=== PATIENT | male | born 1990 | race Hispanic/Latino ===

== ENCOUNTER 2016-10-09 23:04 | Emergency (ER) | payer SELFPAY ==
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
[2016-10-10] MEDS ORDERED: TYLENOL #3 PO ONE (02:09)
[2016-10-10] MEDS ORDERED: FLEXERIL PO ONE (02:09)
[2016-10-10 03:02] VITALS: BP 129/98
== END 2016-10-10 03:04 | disposition home or self-care (01) ==
LOC: ED 23:04
DX: M54.12 Radiculopathy, cervical region (principal); M79.1 Myalgia; J45.909 Unspecified asthma, uncomplicated; F17.200 Nicotine dependence, unspecified, uncomplicated
CPT/HCPCS: 99282

== ENCOUNTER 2016-11-27 19:55 | Emergency (ER) | payer SELFPAY ==
[2016-11-27 20:22] LABS: Basophils % (Auto) 0.5 % (0.0-1.8); Eosinophils % (Auto) 0.2 % (0.0-4.3); Hematocrit 45.6 % (35.5-45.6); Hemoglobin 15.1 gm/dl (11.8-15.2); Mean Corpuscular HGB Conc 33 % (32-34); Mean Corpuscular Hemoglobin 30 pg (28-32); Mean Corpuscular Volume 89 fl (84-94); Platelet Count 251 K/mm3 (140-440); Red Blood Count 5.13 M/mm3 (3.65-5.03); White Blood Count 11.1 K/mm3 (4.5-11.0)
[2016-11-27 20:36] LABS: Bilirubin,Urine NEG (Negative); Blood,Urine NEG (Negative); Ketones,Urine TR mg/dL (Negative); Leukocyte Esterase,Urine NEG (Negative); Mucus,Urine 2+ /HPF; Nitrite,Urine NEG (Negative); Urobilinogen,Urine < 2.0 mg/dL (<2.0)
[2016-11-27 20:38] LABS: Alanine Aminotransferase 42 units/L (7-56); Albumin 4.1 g/dL (3.9-5); Albumin/Globulin Ratio 1.4 %; Alkaline Phosphatase 111 units/L (35-129); Anion Gap 18 mmol/L; BUN/Creatinine Ratio 14.28; Blood Urea Nitrogen 10 mg/dL (9-20); Calcium 8.5 mg/dL (8.4-10.2); Carbon Dioxide 25 mmol/L (22-30); Chloride 97.5 mmol/L (98-107); Glucose 96 mg/dL (75-100); Lipase 26 units/L (13-60); Potassium 3.6 mmol/L (3.6-5.0); Sodium 137 mmol/L (137-145)
[2016-11-28] MEDS ORDERED: NACL 0.9% 1000 ML 1,000 ML IV ONE (06:45)
[2016-11-28] MEDS ORDERED: ZOFRAN IV ONE (06:45)
--- NOTE | 2016-11-28 06:54 | Emergency Department Report ---
HPI - General Chief Complaint: Abdominal Pain Time Seen by Provider: 11/28/16 06:44 - HPI HPI: This is a 26-year-old male who presents to the emergency department, dropped off by a friend, with complaint of generalized body aches, upper abdominal pain, right shoulder pain, nausea and vomiting, bright red blood seen in the stool and some subjective fever has been going on for the past 2 days. He did not take anything for symptoms prior to presentation. He says the abdominal pain is currently 10 out of 10 in intensity and is a stabbing and burning sensation. He denies any known aggravating or alleviating factors. He denies any past medical history. He does not have a primary care doctor. No recent travel or sick contacts at home. ED Past Medical Hx - Past Medical History Previous Medical History?: Yes Hx Asthma: Yes Additional medical history: hypoglycemia - Surgical History Past Surgical History?: Yes Hx Appendectomy: Yes - Social History Smoking Status: Current Some Day Smoker Substance Use Type: None - Medications Home Medications: Home Medications Medication Instructions Recorded Confirmed Last Taken Type Promethazine [Phenergan] 25 mg PO Q6H PRN #8 tablet 10/20/13 Unknown Rx Acetaminophen/Codeine [Tylenol 1 tab PO Q6H #12 tab 10/10/16 Unknown Rx /Codeine # 3 tab] Cyclobenzaprine [Flexeril 10 MG 10 mg PO QHS #20 tablet 10/10/16 Unknown Rx TAB] Ibuprofen [Motrin] 800 mg PO Q8HR PRN #24 tablet 10/10/16 Unknown Rx HYDROcodone/APAP 5-325 [[place] 1 each PO Q6HR PRN #10 tablet 11/28/16 Unknown Rx 5-325 mg TAB] Ondansetron [Zofran Odt] 4 mg PO Q8H PRN #10 tab.rapdis 11/28/16 Unknown Rx ED Review of Systems ROS: Stated complaint: VOMITING BLOOD/ABD/BODY PAIN/FEVER/R SHOULDER PAIN Other details as noted in HPI Comment: All other systems reviewed and negative Constitutional: fever (subjective). denies: weakness Eyes: denies: eye pain, eye discharge, vision change ENT: denies: ear pain, throat pain Respiratory: denies: cough, shortness of breath, wheezing Cardiovascular: denies: chest pain, palpitations Gastrointestinal: abdominal pain, nausea, vomiting, diarrhea, other (bright red blood per rectum) Genitourinary: denies: urgency, dysuria Musculoskeletal: back pain, arthralgia, myalgia Skin: denies: rash, lesions Neurological: denies: headache, weakness, paresthesias Physical Exam - Physical Exam Vital Signs: Vital Signs 11/27/16 11/28/16 11/28/16 20:02 05:25 06:12 Temperature 99.2 F 98.6 F Pulse Rate 95 H 89 Respiratory 20 Rate Blood Pressure 118/79 122/86 O2 Sat by Pulse 95 100 93 Oximetry Physical Exam: GENERAL: The patient is well-developed well-nourished. HEENT: Normocephalic. Atraumatic. Extraocular motions are intact. Patient has moist mucous membranes. Pupils equal reactive to light bilaterally. Oropharynx is clear. NECK: Supple. Trachea is midline. CHEST/LUNGS: Clear to auscultation. There is no respiratory distress noted. HEART/CARDIOVASCULAR: Regular. There is no tachycardia. There is no gallop rub or murmur. ABDOMEN: Abdomen is soft. Mild upper abdominal tenderness to palpation. No guarding rebound tenderness.. Patient has normal bowel sounds. There is no abdominal distention. SKIN: There is no rash. There is no edema. There is no diaphoresis. NEURO: The patient is awake, alert, and oriented. The patient is cooperative. The patient has no focal neurologic deficits. The patient has normal speech. MUSCULOSKELETAL: There is no tenderness or deformity. There is no limitation range of motion. There is no evidence of acute injury. ED Course Vital Signs 11/27/16 11/28/16 11/28/16 20:02 05:25 06:12 Temperature 99.2 F 98.6 F Pulse Rate 95 H 89 Respiratory 20 Rate Blood Pressure 118/79 122/86 O2 Sat by Pulse 95 100 93 Oximetry ED Medical Decision Making - Lab Data Result diagrams: 11/27/16 20:10 11/27/16 20:10 - Radiology Data Radiology results: report reviewed, image reviewed interpreted by me: X-ray of the right shoulder does not show any fracture, dislocation or any acute process. X-ray of the abdomen shows nonspecific nonobstructive bowel gas. Right upper quadrant abdominal ultrasound shows sludge within the gallbladder but no signs of cholecystitis. - Medical Decision Making 26-year-old male presents with a few days of some generalized body aches, abdominal discomfort, nausea, vomiting and subjective fever. Patient's labs are mostly unremarkable. There is a leukocytosis but it is basically within the normal range. The patient does not appear to be very ill-appearing. Heart and lungs sounds normal auscultation. There is some mild upper abdominal tenderness to palpation but it is not a toxic a rigid abdomen. Labs are unremarkable except for a very mild leukocytosis. Normal belly labs including bilirubin, lipase and LFTs. An abdominal x-ray and a right shoulder x-ray were done that did not show any fracture, dislocation, signs of obstruction or any acute processes. With the patient's complaint of upper abdominal pain and some shoulder pain, a biliary etiology was considered. Right upper quadrant ultrasound was done that shows sludge within the gallbladder but no signs of cholecystitis. Patient was given some Zofran for nausea and pain medication and upon reevaluation he is feeling improved. Vital signs stable throughout his ED course including being afebrile. He was given referrals for primary care and gastroenterology. He will return to the ER with any worsening of symptoms or any acute distress. - Differential Diagnosis cholelithiasis, cholecystitis, pancreatitis, viral syndrome, colitis Critical Care Time: No Critical care attestation.: If time is entered above; I have spent that time in minutes in the direct care of this critically ill patient, excluding procedure time. ED Disposition Clinical Impression: Biliary colic, Body aches Right shoulder pain Qualifiers: Chronicity: acute Qualified Code(s): M25.511 - Pain in right shoulder Nausea & vomiting Qualifiers: Vomiting type: unspecified Vomiting Intractability: non-intractable Qualified Code(s): R11.2 - Nausea with vomiting, unspecified Disposition: DISCHARGED TO HOME OR SELFCARE Is pt being admited?: No Condition: Stable Instructions: Biliary Colic (ED), Acute Nausea and Vomiting (ED), Abdominal Pain (ED), Arthralgia (ED) Additional Instructions: Please follow-up with a primary care doctor in the next few days. I have given you a referral for a local direct care staffer, , and oriented follow- up regarding your bladder sludge in pain. Increase your oral rehydration. Return to the emergency department with any worsening of your symptoms or any acute distress. You've been prescribed a medication that is sedating. Therefore this medication cannot be mixed with alcohol, or taken prior to driving, working, or being responsible for children. Prescriptions: HYDROcodone/APAP 5-325 [[place] 5-325 mg TAB] 1 each PO Q6HR PRN #10 tablet PRN Reason: Pain Ondansetron [Zofran Odt] 4 mg PO Q8H PRN #10 tab.rapdis PRN Reason: Nausea Referrals: PRIMARY CARE, [Primary Care Provider] - 3-5 Days MILLIE MAYORGA MD [Staff Physician] - 3-5 Days NIDHI HIGHTOWER MD [Staff Physician] - 3-5 Days [facility] [Outside] - 3-5 Days Time of Disposition: 10:26
--- NOTE | 2016-11-28 07:31 | XRay Report ---
RIGHT SHOULDER RADIOGRAPHS INDICATION: Right shoulder pain for 3 days. COMPARISON: None similar. FINDINGS: Frontal and Y views of the right shoulder, 3 projections demonstrate normal humeral head contour, well positioned against the glenoid. Normal acromioclavicular joint. Preserved scapular contour. Approximately 9 mm humeral neck bone island. Normal visualized soft tissues, right ribs and lung. CONCLUSION: No acute right shoulder radiographic abnormality, as described. Thank you for the opportunity to participate in this patient's care.
[2016-11-28] MEDS ORDERED: MORPHINE IV ONE ×2 (07:57→10:07)
[2016-11-28] MEDS ORDERED: MORPHINE ONE (08:12)
--- NOTE | 2016-11-28 08:50 | XRay Report ---
Flat and upright abdomen: History: Abdominal pain. Findings: No free intraperitoneal air. No bowel distention or wall thickening. No radiopaque calculus or abnormal calcification. Impression: Essentially negative abdomen.
[2016-11-28 09:39] VITALS: BP 119/71
--- NOTE | 2016-11-28 10:14 | Ultrasound Report ---
Sonogram right upper quadrant: History: Right upper quadrant pain. Findings: Normal aorta. Normal liver. No intrahepatic or extrahepatic duct dilatation. Common bile duct 2.8 mm. Gallbladder wall thickness 3 mm. Sludge within the gallbladder. No definite calculi. No pericholecystic fluid. Right kidney 10.8 x 5.3 x 4 cm. Cortical thickness 1.6 cm. Pancreas not well visualized. Impression: Sludge within the gallbladder.
== END 2016-11-28 10:42 | disposition home or self-care (01) ==
LOC: ED 19:55
DX: K80.50 Calculus of bile duct without cholangitis or cholecystitis without obstruction (principal); M79.1 Myalgia; M25.511 Pain in right shoulder; R11.2 Nausea with vomiting, unspecified; J45.909 Unspecified asthma, uncomplicated; F17.200 Nicotine dependence, unspecified, uncomplicated; Z90.49 Acquired absence of other specified parts of digestive tract; Z88.0 Allergy status to penicillin; Z88.2 Allergy status to sulfonamides
CPT/HCPCS: 36415; 73030; 74020; 76705; 80053; 81001; 83690; 85025; 96361; 96365; 96375; 96376; 99284; J2270; J2405; J7030

== ENCOUNTER 2017-03-15 22:22 | Emergency (ER) | payer SELFPAY ==
[2017-03-15 23:24] LABS: Basophils % (Auto) 0.8 % (0.0-1.8); Eosinophils % (Auto) 0.6 % (0.0-4.3); Hemoglobin 14.7 gm/dl (11.8-15.2); Mean Corpuscular HGB Conc 33 % (32-34); Mean Corpuscular Hemoglobin 30 pg (28-32); Mean Corpuscular Volume 89 fl (84-94); Platelet Count 315 K/mm3 (140-440); Red Blood Count 4.96 M/mm3 (3.65-5.03); Red Cell Distribution Width 12.9 % (13.2-15.2); White Blood Count 9.7 K/mm3 (4.5-11.0)
[2017-03-15 23:45] LABS: Anion Gap 21 mmol/L; Blood Urea Nitrogen 8 mg/dL (9-20); Calcium 9.3 mg/dL (8.4-10.2); Carbon Dioxide 21 mmol/L (22-30); Chloride 103.5 mmol/L (98-107); Glucose 93 mg/dL (75-100); Sodium 142 mmol/L (137-145)
--- NOTE | 2017-03-16 02:54 | Emergency Department Report ---
ED Chest Pain HPI - General Chief Complaint: Chest Pain Stated Complaint: CHEST PAIN Time Seen by Provider: 03/16/17 02:44 Source: patient Mode of arrival: Ambulatory Limitations: No Limitations - History of Present Illness Initial Comments: 26 years old male with no significant past medical history by EMS with a chief complaint CHEST pain left-sided sharp in nature and comes and goes. Denied any shortness of breath he said he has been shaking a lot recently. No fever no nausea no vomiting or diarrhea. His mother at his bedside she told me that his father at early age for congestive heart failure. MD Complaint: chest pain -: Sudden Pain Location: left chest Pain Radiation: none Severity: moderate Severity scale (0 -10): 6 Quality: sharp re: denies: nausea, vomting Other Symptoms: denies: cough, fever, syncope - Related Data Previous Rx's Medication Instructions Recorded Last Taken Type Promethazine [Phenergan] 25 mg PO Q6H PRN #8 tablet 10/20/13 Unknown Rx Acetaminophen/Codeine [Tylenol 1 tab PO Q6H #12 tab 10/10/16 Unknown Rx /Codeine # 3 tab] Cyclobenzaprine [Flexeril 10 MG 10 mg PO QHS #20 tablet 10/10/16 Unknown Rx TAB] Ibuprofen [Motrin] 800 mg PO Q8HR PRN #24 tablet 10/10/16 Unknown Rx HYDROcodone/APAP 5-325 [[place] 1 each PO Q6HR PRN #10 tablet 11/28/16 Unknown Rx 5-325 mg TAB] Ondansetron [Zofran Odt] 4 mg PO Q8H PRN #10 tab.rapdis 11/28/16 Unknown Rx Naproxen [Naprosyn] 500 mg PO BID #14 tablet 03/16/17 Unknown Rx Allergies Allergy/AdvReac Type Severity Reaction Status Date / Time Penicillins Allergy Rash Verified 07/19/14 01:37 Sulfa (Sulfonamide Allergy Rash Verified 07/19/14 01:37 Antibiotics) Heart Score - HEART Score History: Slightly suspicious EKG: Normal Age: < 45 Risk factors: 1-2 risk factors Troponin: < normal limit HEART Score: 1 - Critical Actions Critical Actions: 0-3 pts:0.9-1.7%risk of adverse cardiac event.Candidate for discharge ED Review of Systems ROS: Stated complaint: CHEST PAIN Other details as noted in HPI Comment: All other systems reviewed and negative Constitutional: denies: chills, fever ENT: denies: throat pain, dental pain Respiratory: denies: cough, shortness of breath Cardiovascular: chest pain. denies: palpitations, dyspnea on exertion, orthopnea Gastrointestinal: denies: abdominal pain, nausea, vomiting Genitourinary: denies: dysuria Neurological: denies: headache, weakness, numbness, paresthesias ED Past Medical Hx - Past Medical History Previous Medical History?: Yes Hx Psychiatric Treatment: Yes (depression) Hx Asthma: Yes Additional medical history: hypoglycemia, insomnia - Surgical History Past Surgical History?: Yes Hx Appendectomy: Yes - Social History Smoking Status: Current Every Day Smoker Substance Use Type: None - Medications Home Medications: Home Medications Medication Instructions Recorded Confirmed Last Taken Type Promethazine [Phenergan] 25 mg PO Q6H PRN #8 tablet 10/20/13 Unknown Rx Acetaminophen/Codeine [Tylenol 1 tab PO Q6H #12 tab 10/10/16 Unknown Rx /Codeine # 3 tab] Cyclobenzaprine [Flexeril 10 MG 10 mg PO QHS #20 tablet 10/10/16 Unknown Rx TAB] Ibuprofen [Motrin] 800 mg PO Q8HR PRN #24 tablet 10/10/16 Unknown Rx HYDROcodone/APAP 5-325 [[place] 1 each PO Q6HR PRN #10 tablet 11/28/16 Unknown Rx 5-325 mg TAB] Ondansetron [Zofran Odt] 4 mg PO Q8H PRN #10 tab.rapdis 11/28/16 Unknown Rx Naproxen [Naprosyn] 500 mg PO BID #14 tablet 03/16/17 Unknown Rx ED Physical Exam - General Limitations: No Limitations General appearance: alert, in no apparent distress, anxious - Head Head exam: Present: normocephalic - Eye Eye exam: Present: normal appearance - ENT ENT exam: Present: normal exam - Neck Neck exam: Present: normal inspection - Respiratory Respiratory exam: Present: normal lung sounds bilaterally. Absent: wheezes, rales, rhonchi - Cardiovascular Cardiovascular Exam: Present: regular rate, normal rhythm, normal heart sounds - GI/Abdominal GI/Abdominal exam: Present: soft. Absent: distended, tenderness, guarding, rebound, rigid - Back Exam Back exam: Present: normal inspection. Absent: CVA tenderness (R), CVA tenderness (L) - Neurological Exam Neurological exam: Present: alert, oriented X3 - Psychiatric Psychiatric exam: Present: anxious - Skin Skin exam: Present: warm, normal color ED Course Vital Signs 03/15/17 03/16/17 22:40 03:08 Temperature 98.5 F Pulse Rate 82 63 Respiratory 30 H 17 Rate Blood Pressure 136/86 Blood Pressure 121/76 [Left] O2 Sat by Pulse 99 99 Oximetry - Reevaluation(s) Reevaluation #1: 03/16/17 05:24 Patient is sleeping comfortably in the room while walking to inform him about his results in no acute distress. Patient is stated that he is feeling much better his pain is gone advised him to follow up with his primary care physician in the next 2-3 days. ED Medical Decision Making - Lab Data Result diagrams: 03/15/17 23:04 03/15/17 23:04 Critical care attestation.: If time is entered above; I have spent that time in minutes in the direct care of this critically ill patient, excluding procedure time. ED Disposition Clinical Impression: Chest pain, Costochondritis, acute Disposition: DC-01 TO HOME OR SELFCARE Is pt being admited?: No Condition: Stable Instructions: Chest Pain (ED), Costochondritis (ED) Referrals: PRIMARY CARE, [Primary Care Provider] - 3-5 Days
[2017-03-16 03:11] VITALS: BP 121/76
[2017-03-16 04:50] LABS: Urine Drugs of Abuse Note Disclamer
[2017-03-16 05:10] LABS: Bilirubin,Urine NEG (Negative); Blood,Urine NEG (Negative); Ketones,Urine NEG (Negative); Leukocyte Esterase,Urine NEG (Negative); Mucus,Urine 3+ /HPF; Nitrite,Urine NEG (Negative); RBC,Urine < 1.0 /HPF (0.0-6.0); Urobilinogen,Urine < 2.0 mg/dL (<2.0)
--- NOTE | 2017-03-16 08:37 | XRay Report ---
CHEST ONE VIEW INDICATION: Chest pain. COMPARISON: 06/12/2012. FINDINGS: Portable, single, frontal chest radiograph demonstrates normal cardiomediastinal silhouette. Clear lungs. Unremarkable bones. Extrinsic EKG leads. CONCLUSION: No acute disease in the chest. Thank you for the opportunity to participate in this patient's care.
== END 2017-03-16 05:37 | disposition home or self-care (01) ==
LOC: ED 22:22
DX: M94.0 Chondrocostal junction syndrome [Tietze] (principal); J45.909 Unspecified asthma, uncomplicated; F17.210 Nicotine dependence, cigarettes, uncomplicated; Z88.0 Allergy status to penicillin; Z88.2 Allergy status to sulfonamides
CPT/HCPCS: 36415; 71010; 80048; 80307; 81001; 83690; 84484; 85025; 85379; 93005; 93010; 99284

== ENCOUNTER 2017-06-19 20:00 | Emergency (ER) | payer OTHER ==
[2017-06-19 22:24] VITALS: BP 121/77
[2017-06-19 23:27] LABS: Hematocrit 41.4 % (35.5-45.6); Hemoglobin 13.8 gm/dl (11.8-15.2); Mean Corpuscular HGB Conc 33 % (32-34); Mean Corpuscular Hemoglobin 30 pg (28-32); Mean Corpuscular Volume 89 fl (84-94); Platelet Count 317 K/mm3 (140-440); Red Blood Count 4.67 M/mm3 (3.65-5.03); Red Cell Distribution Width 12.9 % (13.2-15.2); White Blood Count 19.4 K/mm3 (4.5-11.0)
[2017-06-19 23:48] LABS: Anion Gap 17 mmol/L; BUN/Creatinine Ratio 15; Blood Urea Nitrogen 9 mg/dL (9-20); Carbon Dioxide 24 mmol/L (22-30); Glucose 93 mg/dL (75-100); Sodium 135 mmol/L (137-145)
--- NOTE | 2017-06-20 03:04 | Emergency Department Report ---
Minor Respiratory - HPI Chief Complaint: Sore Throat Stated Complaint: SORE THROUT,DIARRHEA Time Seen by Provider: 06/20/17 00:10 Duration: 2 weeks Pain Location: Throat Severity: moderate Minor Respiratory: Yes Rhinorrhea, Yes Sore Throat, Yes Able to Tolerate Fluids , Yes Cough, No Ear Pain, No Sick Contacts, No Hemoptysis, No Chest Pain, No Shortness of Breath, No Fever Other History: This is a 26 y.o. male presenting with sore throat and diarrhea x 2 weeks. States he wakes up with discharge in both eyes every morning. Admits to dry cough, diarrhea, headache, and sore throat. Denies chest pain, SOB, and muscle weakness. ED Review of Systems ROS: Stated complaint: SORE THROUT,DIARRHEA Other details as noted in HPI Constitutional: no symptoms reported, see HPI. denies: chills, diaphoresis, fever, malaise, weakness Eyes: as per HPI, eye discharge. denies: eye pain, vision change ENT: as per HPI, throat pain, congestion. denies: ear pain, dental pain, hearing loss, epistaxis Respiratory: no symptoms reported, see HPI, cough. denies: orthopnea, shortness of breath, SOB with exertion, SOB at rest, stridor, wheezing Cardiovascular: as per HPI. denies: chest pain, palpitations, dyspnea on exertion, orthopnea, edema, syncope, paroxysmal nocturnal dyspnea Gastrointestinal: as per HPI. denies: abdominal pain, nausea, vomiting, diarrhea, constipation, hematemesis, melena, hematochezia Neurological: as per HPI. denies: headache, weakness, numbness, paresthesias, confusion, abnormal gait, vertigo Psychiatric: as per HPI. denies: anxiety, depression, auditory hallucinations, visual hallucinations, homicidal thoughts, suicidal thoughts ED Past Medical Hx - Past Medical History Previous Medical History?: Yes Hx Psychiatric Treatment: Yes (depression) Hx Asthma: Yes Additional medical history: hypoglycemia, insomnia - Surgical History Hx Appendectomy: Yes - Social History Smoking Status: Current Some Day Smoker - Medications Home Medications: Home Medications Medication Instructions Recorded Confirmed Last Taken Type Promethazine [Phenergan] 25 mg PO Q6H PRN #8 tablet 10/20/13 Unknown Rx Acetaminophen/Codeine [Tylenol 1 tab PO Q6H #12 tab 10/10/16 Unknown Rx /Codeine # 3 tab] Cyclobenzaprine [Flexeril 10 MG 10 mg PO QHS #20 tablet 10/10/16 Unknown Rx TAB] Ibuprofen [Motrin] 800 mg PO Q8HR PRN #24 tablet 10/10/16 Unknown Rx HYDROcodone/APAP 5-325 [[place] 1 each PO Q6HR PRN #10 tablet 11/28/16 Unknown Rx 5-325 mg TAB] Ondansetron [Zofran Odt] 4 mg PO Q8H PRN #10 tab.rapdis 11/28/16 Unknown Rx Naproxen [Naprosyn] 500 mg PO BID #14 tablet 03/16/17 Unknown Rx Ciprofloxacin 0.3% (Nf) 2.5 ml OP BID 7 Days #1 bottle 06/20/17 Unknown Rx [Ciprofloxacin OPTH] Levofloxacin [Levaquin TAB] 500 mg PO QDAY 7 Days #7 tablet 06/20/17 Unknown Rx Prednisone [predniSONE 5 mg (6-Day 5 mg PO .TAPER #1 tab.ds.pk 06/20/17 Unknown Rx Pack, 21 Tabs)] Minor Respiratory Exam - Exam General: Vital signs noted. No distress. Alert and acting appropriately. HEENT: Yes Pharyngeal Erythema, Yes Moist Mucous Membranes, Yes Rhinorrhea, Yes Conjuctival Injection (bilaterally, clear discharge), No Pharyngeal Exudates, No Frontal Tenderness, No Maxillary Tenderness Ear: Neither TM Bulge, Neither TM Erythema, Neither EAC Pain, Neither EAC Discharge Neck: Yes Supple, No Adenopathy Lungs: Yes Good Air Exchange, Yes Cough, No Wheezes, No Ronchi, No Stridor, No Labored Respirations, No Retractions, No Use of Accessory Muscles, No Other Abnormal Lung Sounds Heart: Yes Regular, No Murmur Abdomen: Yes Normal Bowel Sounds, No Tenderness, No Peritoneal Signs Skin: No Rash, No Edema Neurologic: Alert and oriented, no deficits. Musculoskeletal: Unremarkable. ED Course Vital Signs 06/19/17 06/19/17 22:20 23:04 Temperature 98.1 F 98.1 F Pulse Rate 92 H 96 H Respiratory 18 18 Rate Blood Pressure 121/77 121/77 O2 Sat by Pulse 97 97 Oximetry ED Medical Decision Making - Lab Data Result diagrams: 06/19/17 23:16 06/19/17 23:16 Critical care attestation.: If time is entered above; I have spent that time in minutes in the direct care of this critically ill patient, excluding procedure time. ED Disposition Clinical Impression: URI (upper respiratory infection) Qualifiers: URI type: acute laryngopharyngitis Qualified Code(s): J06.0 - Acute laryngopharyngitis Conjunctivitis Qualifiers: Conjunctivitis type: acute Acute conjunctivitis type: bacterial Laterality: bilateral Qualified Code(s): H10.33 - Unspecified acute conjunctivitis, bilateral Disposition: TO HOME OR SELFCARE Is pt being admited?: No Does the pt Need Aspirin: No Condition: Stable Instructions: Pharyngitis (ED), Upper Respiratory Infection (ED) Additional Instructions: Increase fluid intake. Return to ER if you experience shortness of breath, fever, difficulty breathing. Prescriptions: Ciprofloxacin 0.3% (Nf) [Ciprofloxacin OPTH] 2.5 ml OP BID 7 Days #1 bottle Levofloxacin [Levaquin TAB] 500 mg PO QDAY 7 Days #7 tablet Prednisone [predniSONE 5 mg (6-Day Pack, 21 Tabs)] 5 mg PO .TAPER #1 tab.ds.pk Referrals: PARISA PATEL MD [Primary Care Provider] - 3-5 Days [facility] [Outside] - 3-5 Days [facility] [Outside] - 3-5 Days Forms: Work/School Release Form(ED) Time of Disposition: 03:13 Print Language: FRENCH
[2017-06-20] MEDS ORDERED: MOTRIN ONE (03:27)
[2017-06-20] MEDS ORDERED: DELTASONE ONE (03:27)
[2017-06-20] MEDS ORDERED: DELTASONE PO ONE (03:37)
[2017-06-20] MEDS ORDERED: MOTRIN PO ONE (03:38)
== END 2017-06-20 04:01 | disposition home or self-care (01) ==
LOC: ED 20:00
DX: J06.0 Acute laryngopharyngitis (principal); H10.33 Unspecified acute conjunctivitis, bilateral; F32.9 Major depressive disorder, single episode, unspecified; J45.909 Unspecified asthma, uncomplicated; F17.200 Nicotine dependence, unspecified, uncomplicated; Z88.0 Allergy status to penicillin; Z88.2 Allergy status to sulfonamides
CPT/HCPCS: 36415; 80048; 85027; 87116; 87430; 99283; J7512

== ENCOUNTER 2017-10-02 19:59 | Emergency (ER) | payer SELFPAY ==
[2017-10-02] MEDS ORDERED: ASPIRIN PO ONE (20:22)
[2017-10-02 20:34] LABS: Basophils # (Auto) 0.1 K/mm3 (0.0-0.1); Basophils % (Auto) 0.6 % (0.0-1.8); Eosinophils # (Auto) 0.1 K/mm3 (0.0-0.4); Eosinophils % (Auto) 0.6 % (0.0-4.3); Hematocrit 46.8 % (35.5-45.6); Hemoglobin 15.7 gm/dl (11.8-15.2); Lymphocytes # (Auto) 2.5 K/mm3 (1.2-5.4); Lymphocytes % (Auto) 25.2 % (13.4-35.0); Mean Corpuscular HGB Conc 34 % (32-34); Mean Corpuscular Hemoglobin 30 pg (28-32); Mean Corpuscular Volume 88 fl (84-94); Monocytes # (Auto) 0.5 K/mm3 (0.0-0.8); Monocytes % (Auto) 5.3 % (0.0-7.3); Platelet Count 289 K/mm3 (140-440); Red Blood Count 5.29 M/mm3 (3.65-5.03)
[2017-10-02 20:52] LABS: BUN/Creatinine Ratio 23; Blood Urea Nitrogen 14 mg/dL (9-20); Calcium 8.9 mg/dL (8.4-10.2); Hemolysis Index 4
[2017-10-03] MEDS ORDERED: MOTRIN PO ONE (00:14)
--- NOTE | 2017-10-03 00:15 | Emergency Department Report ---
ED Chest Pain HPI - General Chief Complaint: Chest Pain Stated Complaint: CHEST PAIN Time Seen by Provider: 10/02/17 23:57 Source: patient, RN notes reviewed, old records reviewed Mode of arrival: Ambulatory Limitations: No Limitations - History of Present Illness Initial Comments: This is a 27-year-old male. He is previously unknown to this provider. He has chronic sleep disturbances and takes trazodone. The patient presents to the ER with a complaint of central chest pain. The pain is central and radiates to the right chest wall and left chest wall over the past 48 hours. Briefly, it radiated to the right upper extremity within the past 24 hours and this was relieved with NSAIDs. No recent aspirin use, no recent cocaine use, no leg pain, no leg swelling, no DVT or pulmonary embolus risk factors. Patient denies nausea, vomiting, diaphoresis. The pain does not have exacerbating or relieving factors, he denies cough, fever , mucus production MD Complaint: chest pain -: Gradual, days(s) Onset: during rest Pain Location: left chest, right chest Severity: mild Severity scale (0 -10): 5 Quality: tightness Consistency: intermittent Improves With: medication-other Worsens With: nothing re: denies: nausea, vomting, diaphoresis, dyspnea, sense of impending doom Other Symptoms: denies: cough, fever, syncope, rash, acid taste in mouth, leg swelling, palpitations, burping Treatments Prior to Arrival: other Aspirin use within the Past 7 Days: (0) No - Related Data On Oral Contraceptives: No Previous Rx's Medication Instructions Recorded Last Taken Type Promethazine [Phenergan] 25 mg PO Q6H PRN #8 tablet 10/20/13 Unknown Rx Acetaminophen/Codeine [Tylenol 1 tab PO Q6H #12 tab 10/10/16 Unknown Rx /Codeine # 3 tab] Cyclobenzaprine [Flexeril 10 MG 10 mg PO QHS #20 tablet 10/10/16 Unknown Rx TAB] Ibuprofen [Motrin] 800 mg PO Q8HR PRN #24 tablet 10/10/16 Unknown Rx HYDROcodone/APAP 5-325 [[place] 1 each PO Q6HR PRN #10 tablet 11/28/16 Unknown Rx 5-325 mg TAB] Ondansetron [Zofran Odt] 4 mg PO Q8H PRN #10 tab.rapdis 11/28/16 Unknown Rx Naproxen [Naprosyn] 500 mg PO BID #14 tablet 03/16/17 Unknown Rx Ciprofloxacin 0.3% (Nf) 2.5 ml OP BID 7 Days #1 bottle 06/20/17 Unknown Rx [Ciprofloxacin OPTH] Levofloxacin [Levaquin TAB] 500 mg PO QDAY 7 Days #7 tablet 06/20/17 Unknown Rx Prednisone [predniSONE 5 mg (6-Day 5 mg PO .TAPER #1 tab.ds.pk 06/20/17 Unknown Rx Pack, 21 Tabs)] Aspirin [Aspirin BABY CHEW TAB] 81 mg PO QDAY #30 tab.chew 10/03/17 Unknown Rx Allergies Allergy/AdvReac Type Severity Reaction Status Date / Time Penicillins Allergy Rash Verified 07/19/14 01:37 Sulfa (Sulfonamide Allergy Rash Verified 07/19/14 01:37 Antibiotics) Heart Score - HEART Score History: Slightly suspicious EKG: Normal Age: < 45 Risk factors: 1-2 risk factors Troponin: < normal limit HEART Score: 1 - Critical Actions Critical Actions: 0-3 pts:0.9-1.7%risk of adverse cardiac event.Candidate for discharge ED Review of Systems ROS: Stated complaint: CHEST PAIN Other details as noted in HPI Comment: All other systems reviewed and negative ED Past Medical Hx - Past Medical History Hx Psychiatric Treatment: Yes (depression) Hx Asthma: Yes Additional medical history: hypoglycemia, insomnia - Surgical History Hx Appendectomy: Yes - Social History Smoking Status: Current Every Day Smoker Substance Use Type: None - Medications Home Medications: Home Medications Medication Instructions Recorded Confirmed Last Taken Type Promethazine [Phenergan] 25 mg PO Q6H PRN #8 tablet 10/20/13 Unknown Rx Acetaminophen/Codeine [Tylenol 1 tab PO Q6H #12 tab 10/10/16 Unknown Rx /Codeine # 3 tab] Cyclobenzaprine [Flexeril 10 MG 10 mg PO QHS #20 tablet 10/10/16 Unknown Rx TAB] Ibuprofen [Motrin] 800 mg PO Q8HR PRN #24 tablet 10/10/16 Unknown Rx HYDROcodone/APAP 5-325 [[place] 1 each PO Q6HR PRN #10 tablet 11/28/16 Unknown Rx 5-325 mg TAB] Ondansetron [Zofran Odt] 4 mg PO Q8H PRN #10 tab.rapdis 11/28/16 Unknown Rx Naproxen [Naprosyn] 500 mg PO BID #14 tablet 03/16/17 Unknown Rx Ciprofloxacin 0.3% (Nf) 2.5 ml OP BID 7 Days #1 bottle 06/20/17 Unknown Rx [Ciprofloxacin OPTH] Levofloxacin [Levaquin TAB] 500 mg PO QDAY 7 Days #7 tablet 06/20/17 Unknown Rx Prednisone [predniSONE 5 mg (6-Day 5 mg PO .TAPER #1 tab.ds.pk 06/20/17 Unknown Rx Pack, 21 Tabs)] Aspirin [Aspirin BABY CHEW TAB] 81 mg PO QDAY #30 tab.chew 10/03/17 Unknown Rx ED Physical Exam - General Limitations: No Limitations General appearance: alert, in no apparent distress - Head Head exam: Present: atraumatic, normocephalic - Eye Eye exam: Present: normal appearance, EOMI. Absent: nystagmus - ENT ENT exam: Present: normal exam, normal orophraynx, mucous membranes moist, normal external ear exam - Neck Neck exam: Present: normal inspection, full ROM. Absent: tenderness, meningismus - Respiratory Respiratory exam: Present: normal lung sounds bilaterally. Absent: respiratory distress, wheezes, rales, rhonchi, stridor - Cardiovascular Cardiovascular Exam: Present: regular rate, normal rhythm. Absent: systolic murmur, diastolic murmur, rubs, gallop - GI/Abdominal GI/Abdominal exam: Present: soft, normal bowel sounds. Absent: distended, tenderness, guarding, rebound, rigid, pulsatile mass - Rectal Rectal exam: Present: deferred - Extremities Exam Extremities exam: Present: normal inspection, full ROM, normal capillary refill. Absent: pedal edema, joint swelling, calf tenderness - Back Exam Back exam: Present: normal inspection, full ROM. Absent: tenderness, CVA tenderness (R), paraspinal tenderness, vertebral tenderness - Neurological Exam Neurological exam: Present: alert, oriented X3, CN II-XII intact, normal gait, other (Extraocular movements intact. Tongue midline. No facial droop. Facial sensation intact to light touch in the V1, V2, V3 distribution bilaterally. 5 and 5 strength in 4 extremities.. Sensation is intact to light touch in 4 extremities.). Absent: motor sensory deficit - Psychiatric Psychiatric exam: Present: normal affect, normal mood - Skin Skin exam: Present: warm, dry, intact, normal color. Absent: rash ED Course Vital Signs 10/02/17 10/02/17 10/02/17 20:07 20:18 23:31 Temperature 98.0 F 98 F 98.3 F Pulse Rate 86 86 74 Respiratory 16 18 20 Rate Blood Pressure 164/108 164/88 Blood Pressure 149/102 [Left] O2 Sat by Pulse 99 99 97 Oximetry 10/02/17 10/03/17 23:38 01:13 Temperature Pulse Rate Respiratory 20 20 Rate Blood Pressure Blood Pressure [Left] O2 Sat by Pulse 97 Oximetry JAME score - Jame Score Age > 65: (0) No Aspirin use within the Past 7 Days: (0) No 3 or more CAD Risk Factors: (0) No 2 or more Angina events in past 24 hrs: (0) No Known CAD with more than 50% Stenosis: (0) No Elevated Cardiac Markers: (0) No ST Deviation Greater than 0.5mm: (0) No JAME Score: 0 ED Medical Decision Making - Lab Data Result diagrams: 10/02/17 20:24 10/02/17 20:24 Vital Signs 10/02/17 10/02/17 10/02/17 20:07 20:18 23:31 Temperature 98.0 F 98 F 98.3 F Pulse Rate 86 86 74 Respiratory 16 18 20 Rate Blood Pressure 164/108 164/88 Blood Pressure 149/102 [Left] O2 Sat by Pulse 99 99 97 Oximetry 10/02/17 10/03/17 23:38 01:13 Temperature Pulse Rate Respiratory 20 20 Rate Blood Pressure Blood Pressure [Left] O2 Sat by Pulse 97 Oximetry Lab Results 10/02/17 10/02/17 10/02/17 Range/Units 20:24 20:24 23:37 WBC 10.0 (4.5-11.0) K/mm3 RBC 5.29 H (3.65-5.03) M/mm3 Hgb 15.7 H (11.8-15.2) gm/dl Hct 46.8 H (35.5-45.6) % MCV 88 (84-94) fl MCH 30 (28-32) pg MCHC 34 (32-34) % RDW 13.0 L (13.2-15.2) % Plt Count 289 (140-440) K/mm3 Lymph % (Auto) 25.2 (13.4-35.0) % [place] % (Auto) 5.3 (0.0-7.3) % Eos % (Auto) 0.6 (0.0-4.3) % Baso % (Auto) 0.6 (0.0-1.8) % Lymph # 2.5 (1.2-5.4) K/mm3 Fleming # 0.5 (0.0-0.8) K/mm3 Eos # 0.1 (0.0-0.4) K/mm3 Baso # 0.1 (0.0-0.1) K/mm3 Seg Neutrophils % 68.3 (40.0-70.0) % Seg Neutrophils # 6.8 (1.8-7.7) K/mm3 Sodium 140 (137-145) mmol/L Potassium 3.5 L (3.6-5.0) mmol/L Chloride 100.9 (98-107) mmol/L Carbon Dioxide 26 (22-30) mmol/L Anion Gap 17 mmol/L BUN 14 (9-20) mg/dL Creatinine 0.6 L (0.8-1.5) mg/dL Estimated GFR > 60 ml/min BUN/Creatinine Ratio 23 % Glucose 81 (75-100) mg/dL Calcium 8.9 (8.4-10.2) mg/dL Troponin T < 0.010 < 0.010 (0.00-0.029) ng/mL - EKG Data -: EKG Interpreted by La - EKG Data When compared to previous EKG there are: no significant change Interpretation: normal EKG 10/03/17 01:22 Sinus, 82 bpm, normal intervals, normal axis, not morphologically consistent with ST elevation myocardial infarction, unchanged from prior EKG March 2017. - Radiology Data Radiology results: report reviewed, image reviewed X-ray of the chest, as per radiology, small left lower lobe infiltrate - Medical Decision Making Differential diagnosis, including but not limited to: GERD, gastritis, pericarditis, myocarditis, hiatal hernia Assessment and plan: 27-year-old male with atypical chest pain, low risk by heart score, low risk by JAME score, EKG unchanged from prior, troponin negative 2, no pulmonary embolus or DVT risk factors, low risk by well's criteria, perc negative While the patient's x-ray has been interpreted as showing a small left lower lobe infiltrate, the patient has no focal pulmonary findings and his history and physical are not consistent with pneumonia. He has full range of motion to the bilateral upper and lower extremities including sensation intact to light touch and appropriate strength. Clinically doubt pneumonia, may be a component of cervical radiculopathy. The patient is suitable to follow up with outpatient primary care doctor or computer networker for incidental elevated blood pressure and low risk chest pain. Incidentally, the patient did request a refill on trazodone to help out with sleep, and I instructed him that he will need to follow up with a primary care doctor or prescribing psychiatrist for this. Critical care attestation.: If time is entered above; I have spent that time in minutes in the direct care of this critically ill patient, excluding procedure time. ED Disposition Clinical Impression: Chest pain Disposition: DC-01 TO HOME OR SELFCARE Is pt being admited?: No Does the pt Need Aspirin: No Condition: Stable Instructions: Chest Pain (ED) Additional Instructions: Rest, and avoid heavy lifting. Take aspirin as directed. Take Tylenol alternating with ibuprofen [id number] as needed for pain. Follow up with either her primary care doctor or any of the listed cardiology groups within the next week for you Chest pain. Return to the ER right away with hip pain, worsened pain, migration of pain, fevers, chills, lethargy, irritability, projectile vomiting, change in mental status, confusion, inability to tolerate liquid feeds. Referrals: PARISA PATEL MD [Primary Care Provider] - 3-5 Days [facility] [Provider Group] - 3-5 Days [facility] [Provider Group] - 3-5 Days
--- NOTE | 2017-10-03 00:36 | XRay Report ---
FINAL REPORT PROCEDURE: XR CHEST ROUTINE 2V TECHNIQUE: PA and lateral chest radiographs were obtained. CPT 81892 HISTORY: cp COMPARISON: No prior studies are available for comparison. FINDINGS: Heart: Normal. Mediastinum/Vessels: Normal. Lungs/Pleural space: Mild infiltrate left lower lung. No infiltrate, effusion or pneumothorax. Bony thorax: No acute osseous abnormality. Other: IMPRESSION: Mild infiltrate left lower lung.
[2017-10-03 02:11] VITALS: BP 127/91
== END 2017-10-03 02:31 | disposition home or self-care (01) ==
LOC: ED 19:59
DX: R07.89 Other chest pain (principal); F17.200 Nicotine dependence, unspecified, uncomplicated; F32.9 Major depressive disorder, single episode, unspecified; Z90.49 Acquired absence of other specified parts of digestive tract; J45.909 Unspecified asthma, uncomplicated; G47.00 Insomnia, unspecified
CPT/HCPCS: 36415; 71046; 80048; 84484; 85025; 93005; 93010; 99284

== ENCOUNTER 2018-01-28 19:43 | Emergency (ER) | payer SELFPAY ==
[2018-01-28 19:57] VITALS: BP 149/100
[2018-01-28] MEDS ORDERED: MOTRIN PO ONE (23:09)
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
== END 2018-01-29 01:38 | disposition home or self-care (01) ==
LOC: ED 19:43
DX: K02.9 Dental caries, unspecified (principal); K05.10 Chronic gingivitis, plaque induced; M79.1 Myalgia; R42 Dizziness and giddiness; F32.9 Major depressive disorder, single episode, unspecified; J45.909 Unspecified asthma, uncomplicated; F17.200 Nicotine dependence, unspecified, uncomplicated; E16.2 Hypoglycemia, unspecified; G47.00 Insomnia, unspecified; Z90.89 Acquired absence of other organs; Z88.0 Allergy status to penicillin; Z88.2 Allergy status to sulfonamides
CPT/HCPCS: 99282

== ENCOUNTER 2019-08-08 16:26 | Emergency (ER) | payer SELFPAY ==
[2019-08-08 17:24] VITALS: BP 140/85
[2019-08-08] MEDS ORDERED: ACETAMINOPHEN 325 MG TAB PO PRN (17:28)
--- NOTE | 2019-08-08 17:28 | Event Note ---
ED Screening Note ED Screening Note: 28-year-old gentleman presenting with total body pain, headache, generalized malaise and fatigue, no neck pain, no neck stiffness. Also endorses intermittent left-sided elbow pain, intermittent right-sided wrist pain there is no facial droop. Tongue is midline. Extraocular movements are intact bilaterally. Walking with a steady gait. Speaking in full sentences. Normal appropriate thought content. 5 out of 5 strength in 4 extremities. Sensation is intact to light touch in 4 extremities. S1, S2, regular rate and rhythm. Breath sounds clear to auscultation bilaterally. Walking with a steady gait. Moving 4 extremities without difficulty. No redness, pus or streaking. Appropriate screening laboratory studies ordered. Suitable for minor care/Fast-Trak. This initial assessment/diagnostic orders/clinical plan/treatment(s) is/are subject to change based on patients health status, clinical progression and re- assessment by fellow clinical providers in the ED. Further treatment and workup at subsequent clinical providers discretion. Patient/guardian urged not to elope from the ED as their condition may be serious if not clinically assessed and managed. Initial orders include:
[2019-08-08 18:33] LABS: Hematocrit 41.6 % (35.5-45.6); Hemoglobin 14.1 gm/dl (11.8-15.2); Mean Corpuscular HGB Conc 34 % (32-34); Mean Corpuscular Volume 90 fl (84-94); Red Blood Count 4.62 M/mm3 (3.65-5.03); Red Cell Distribution Width 12.9 % (13.2-15.2)
[2019-08-08 18:47] LABS: INR 1.01 (0.87-1.13)
[2019-08-08 18:55] LABS: Alanine Aminotransferase 37 units/L (7-56); Albumin 4.3 g/dL (3.9-5); BUN/Creatinine Ratio 14; Blood Urea Nitrogen 10 mg/dL (9-20); Calcium 8.6 mg/dL (8.4-10.2); Hemolysis Index 37
--- NOTE | 2019-08-08 19:06 | Cat Scan Report ---
CT head/brain wo con INDICATION / CLINICAL INFORMATION: 28 years Male; headache. TECHNIQUE: Routine CT head without contrast. All CT scans at this location are performed using CT dos e reduction for ALARA by means of automated exposure control. COMPARISON: None. FINDINGS: BRAIN / INTRACRANIAL CONTENTS: The brain demonstrate appropriate attenuation. The jugular system is w ithin normal limits in size and configuration. There is no CT ends of acute intracranial hemorrhage o r significant mass effect. The subtle focus of increased attenuation projected along the superior rig ht frontal subcortical region appears to be vascular in origin. ORBITS: No significant abnormality of visualized orbits. SINUSES / MASTOIDS: No significant abnormality the visualized paranasal sinuses or mastoid air cells. CRANIOCERVICAL JUNCTION: No significant abnormality. ADDITIONAL FINDINGS: None. IMPRESSION: 1. There is no CT evidence of acute intracranial process. Signer Name: Chuck Garcia MD Signed: 08/08/2019 7:02 PM Workstation Name: [id number]
[2019-08-08 21:06] LABS: Mean Platelet Volume 7.7 fl (6-12); Platelet Count 231 K/mm3 (140-440)
--- NOTE | 2019-08-08 21:40 | Emergency Department Report ---
ED General Adult HPI - General Chief complaint: Pain General Stated complaint: PAIN ALL OVER Time Seen by Provider: 08/08/19 20:24 Source: patient Mode of arrival: Wheelchair Limitations: No Limitations - History of Present Illness Initial comments: This is a 28-year-old male who presents to the emergency room with myalgia and a cough for 2 days. Past medical history of asthma and depression. Patient denies recent travel. He reports occasional left elbow pain. He denies taking anything for symptomatic relief. He states cough is chronic and associated with asthma. He denies chest pain, palpitations, shortness of breath, dizziness, weakness, nausea, vomiting, or abdominal pain. Onset/Timin -: days(s) Radiation: non-radiation Severity scale (0 -10): 4 Quality: aching Consistency: intermittent Improves with: none Worsens with: none Associated Symptoms: cough. denies: diaphoresis, fever/chills, loss of appetite , malaise, nausea/vomiting, seizure, shortness of breath, syncope, weakness Treatments Prior to Arrival: none - Related Data Previous Rx's Medication Instructions Recorded Last Taken Type Promethazine [Phenergan] 25 mg PO Q6H PRN #8 tablet 10/20/13 Unknown Rx Acetaminophen/Codeine [Tylenol 1 tab PO Q6H #12 tab 10/10/16 Unknown Rx /Codeine # 3 tab] Cyclobenzaprine [Flexeril 10 MG 10 mg PO QHS #20 tablet 10/10/16 Unknown Rx TAB] HYDROcodone/APAP 5-325 [[place] 1 each PO Q6HR PRN #10 tablet 11/28/16 Unknown Rx 5-325 mg TAB] Ondansetron [Zofran Odt] 4 mg PO Q8H PRN #10 tab.rapdis 11/28/16 Unknown Rx Naproxen [Naprosyn] 500 mg PO BID #14 tablet 03/16/17 Unknown Rx Ciprofloxacin 0.3% (Nf) 2.5 ml OP BID 7 Days #1 bottle 06/20/17 Unknown Rx [Ciprofloxacin OPTH] Prednisone [predniSONE 5 mg (6-Day 5 mg PO .TAPER #1 tab.ds.pk 06/20/17 Unknown Rx Pack, 21 Tabs)] levoFLOXacin [Levaquin TAB] 500 mg PO QDAY 7 Days #7 tablet 06/20/17 Unknown Rx Aspirin [Aspirin BABY CHEW TAB] 81 mg PO QDAY #30 tab.chew 10/03/17 Unknown Rx Clindamycin [Clindamycin CAP] 300 mg PO Q8H 10 Days #30 cap 01/29/18 Unknown Rx Ibuprofen [Motrin 800 MG tab] 800 mg PO Q8HR PRN #20 tablet 01/29/18 Unknown Rx traMADoL [Ultram 50 MG tab] 50 mg PO Q6HR PRN #20 tablet 01/29/18 Unknown Rx Acetaminophen/Codeine [Tylenol 1 tab PO Q6H PRN #12 tab 06/18/18 Unknown Rx /Codeine # 3 tab] Clindamycin [Clindamycin CAP] 300 mg PO Q6H #21 capsule 06/18/18 Unknown Rx Albuterol INH(or & Nicu Only) 2 puff IH QID PRN #8.5 gram 08/08/19 Unknown Rx [ProAir HFA Inhaler] Allergies Allergy/AdvReac Type Severity Reaction Status Date / Time Penicillins Allergy Rash Verified 07/19/14 01:37 Sulfa (Sulfonamide Allergy Rash Verified 07/19/14 01:37 Antibiotics) ED Review of Systems ROS: Stated complaint: PAIN ALL OVER Other details as noted in HPI Constitutional: denies: chills, fever Respiratory: cough. denies: shortness of breath, wheezing Cardiovascular: denies: chest pain, palpitations Gastrointestinal: denies: abdominal pain, nausea, diarrhea Musculoskeletal: myalgia. denies: back pain, joint swelling, arthralgia Skin: denies: rash, lesions Neurological: denies: headache, weakness, paresthesias Psychiatric: denies: anxiety, depression ED Past Medical Hx - Past Medical History Hx Psychiatric Treatment: Yes (depression) Hx Asthma: Yes Additional medical history: hypoglycemia, insomnia - Surgical History Hx Appendectomy: Yes - Social History Smoking Status: Current Every Day Smoker Substance Use Type: None - Medications Home Medications: Home Medications Medication Instructions Recorded Confirmed Last Taken Type Promethazine [Phenergan] 25 mg PO Q6H PRN #8 tablet 10/20/13 Unknown Rx Acetaminophen/Codeine [Tylenol 1 tab PO Q6H #12 tab 10/10/16 Unknown Rx /Codeine # 3 tab] Cyclobenzaprine [Flexeril 10 MG 10 mg PO QHS #20 tablet 10/10/16 Unknown Rx TAB] HYDROcodone/APAP 5-325 [[place] 1 each PO Q6HR PRN #10 tablet 11/28/16 Unknown Rx 5-325 mg TAB] Ondansetron [Zofran Odt] 4 mg PO Q8H PRN #10 tab.rapdis 11/28/16 Unknown Rx Naproxen [Naprosyn] 500 mg PO BID #14 tablet 03/16/17 Unknown Rx Ciprofloxacin 0.3% (Nf) 2.5 ml OP BID 7 Days #1 bottle 06/20/17 Unknown Rx [Ciprofloxacin OPTH] Prednisone [predniSONE 5 mg (6-Day 5 mg PO .TAPER #1 tab.ds.pk 06/20/17 Unknown Rx Pack, 21 Tabs)] levoFLOXacin [Levaquin TAB] 500 mg PO QDAY 7 Days #7 tablet 06/20/17 Unknown Rx Aspirin [Aspirin BABY CHEW TAB] 81 mg PO QDAY #30 tab.chew 10/03/17 Unknown Rx Clindamycin [Clindamycin CAP] 300 mg PO Q8H 10 Days #30 cap 01/29/18 Unknown Rx Ibuprofen [Motrin 800 MG tab] 800 mg PO Q8HR PRN #20 tablet 01/29/18 Unknown Rx traMADoL [Ultram 50 MG tab] 50 mg PO Q6HR PRN #20 tablet 01/29/18 Unknown Rx Acetaminophen/Codeine [Tylenol 1 tab PO Q6H PRN #12 tab 06/18/18 Unknown Rx /Codeine # 3 tab] Clindamycin [Clindamycin CAP] 300 mg PO Q6H #21 capsule 06/18/18 Unknown Rx Albuterol INH(or & Nicu Only) 2 puff IH QID PRN #8.5 gram 08/08/19 Unknown Rx [ProAir HFA Inhaler] ED Physical Exam - General Limitations: No Limitations General appearance: alert, in no apparent distress - Respiratory Respiratory exam: Present: normal lung sounds bilaterally. Absent: respiratory distress - Cardiovascular Cardiovascular Exam: Present: regular rate, normal rhythm. Absent: systolic murmur, diastolic murmur, rubs, gallop - GI/Abdominal GI/Abdominal exam: Present: soft, normal bowel sounds. Absent: distended, tenderness, guarding, rebound, rigid - Back Exam Back exam: Present: full ROM. Absent: muscle spasm, paraspinal tenderness, vertebral tenderness, rash noted - Neurological Exam Neurological exam: Present: alert, oriented X3, normal gait - Psychiatric Psychiatric exam: Present: normal affect, normal mood - Skin Skin exam: Present: warm, dry, intact, normal color. Absent: rash ED Course Vital Signs 08/08/19 16:31 Temperature 98.7 F Pulse Rate 97 H Respiratory 20 Rate Blood Pressure 140/85 O2 Sat by Pulse 96 Oximetry ED Medical Decision Making - Lab Data Result diagrams: 08/08/19 18:04 08/08/19 18:04 Lab Results 08/08/19 08/08/19 08/08/19 Range/Units 18:04 18:04 18:04 WBC 9.1 (4.5-11.0) K/mm3 RBC 4.62 (3.65-5.03) M/mm3 Hgb 14.1 (11.8-15.2) gm/dl Hct 41.6 (35.5-45.6) % MCV 90 (84-94) fl MCH 31 (28-32) pg MCHC 34 (32-34) % RDW 12.9 L (13.2-15.2) % Plt Count 231 (140-440) K/mm3 PT 13.4 (12.2-14.9) Sec. INR 1.01 (0.87-1.13) Sodium 136 L (137-145) mmol/L Potassium 4.1 (3.6-5.0) mmol/L Chloride 99.5 (98-107) mmol/L Carbon Dioxide 23 (22-30) mmol/L Anion Gap 18 mmol/L BUN 10 (9-20) mg/dL Creatinine 0.7 L (0.8-1.5) mg/dL Estimated GFR > 60 ml/min BUN/Creatinine Ratio 14 % Glucose 84 (75-100) mg/dL Calcium 8.6 (8.4-10.2) mg/dL Magnesium (1.7-2.3) mg/dL Total Bilirubin 0.30 (0.1-1.2) mg/dL AST 22 (5-40) units/L ALT 37 (7-56) units/L Alkaline Phosphatase 103 (35-129) units/L Total Creatine Kinase (55-170) units/L Total Protein 7.2 (6.3-8.2) g/dL Albumin 4.3 (3.9-5) g/dL Albumin/Globulin Ratio 1.5 % /30/20 Range/Units 18:04 WBC (4.5-11.0) K/mm3 RBC (3.65-5.03) M/mm3 Hgb (11.8-15.2) gm/dl Hct (35.5-45.6) % MCV (84-94) fl MCH (28-32) pg MCHC (32-34) % RDW (13.2-15.2) % Plt Count (140-440) K/mm3 PT (12.2-14.9) Sec. INR (0.87-1.13) Sodium (137-145) mmol/L Potassium (3.6-5.0) mmol/L Chloride (98-107) mmol/L Carbon Dioxide (22-30) mmol/L Anion Gap mmol/L BUN (9-20) mg/dL Creatinine (0.8-1.5) mg/dL Estimated GFR ml/min BUN/Creatinine Ratio % Glucose (75-100) mg/dL Calcium (8.4-10.2) mg/dL Magnesium 2.20 (1.7-2.3) mg/dL Total Bilirubin (0.1-1.2) mg/dL AST (5-40) units/L ALT (7-56) units/L Alkaline Phosphatase (35-129) units/L Total Creatine Kinase 113 (55-170) units/L Total Protein (6.3-8.2) g/dL Albumin (3.9-5) g/dL Albumin/Globulin Ratio % - EKG Data -: No EKG Interpreted by Me (EKG interpreted by attending) EKG shows normal: sinus rhythm Rate: normal - Radiology Data Radiology results: report reviewed CT head/brain wo con INDICATION / CLINICAL INFORMATION: 28 years Male; headache. TECHNIQUE: Routine CT head without contrast. All CT scans at this location are performed using CT dose reduction for ALARA by means of automated exposure control. COMPARISON: None. FINDINGS: BRAIN / INTRACRANIAL CONTENTS: The brain demonstrate appropriate attenuation. The jugular system is within normal limits in size and configuration. There is no CT ends of acute intracranial hemorrhage or significant mass effect. The subtle focus of increased attenuation projected along the superior right frontal subcortical region appears to be vascular in origin. ORBITS: No significant abnormality of visualized orbits. SINUSES / MASTOIDS: No significant abnormality the visualized paranasal sinuses or mastoid air cells. CRANIOCERVICAL JUNCTION: No significant abnormality. ADDITIONAL FINDINGS: None. IMPRESSION: 1. There is no CT evidence of acute intracranial process. - Medical Decision Making 28 y.o. male that presents with off and myalgia for 2 days. History of Asthma and depression. Noncompliant with medication. Vitals stable. Normal exam. Labs and head CT were ordered from triage. All labs are unremarkable. CT of hated no acute findings. Start albuterol inhaler to cover bronchitis. Instructed to take NSAIDs for pain management. Discharged home stable. Follow up with PCP in 2-3 days. Patient also given strict return instructions. Return to work t omorrow. Critical care attestation.: If time is entered above; I have spent that time in minutes in the direct care of this critically ill patient, excluding procedure time. ED Disposition Clinical Impression: Generalized pain, Cough in adult, Bronchitis Disposition: TO HOME OR SELFCARE Is pt being admited?: No Condition: Stable Instructions: Chronic Bronchitis (ED) Additional Instructions: Increase fluid intake and rest. Wash hands frequently. Continue taking Tylenol or ibuprofen to control fever. F/U with Primary Care Provider. Return to ER if fever, shortness of breath, or difficulty breathing after 48 hours of supportive care. Prescriptions: Albuterol INH(or & Nicu Only) [ProAir HFA Inhaler] 2 puff IH QID PRN #8.5 gram PRN Reason: Shortness Of Breath Referrals: [facility] [Outside] - 3-5 Days [facility] [Outside] - 3-5 Days [facility] [Outside] - 3-5 Days Forms: Work/School Release Form(ED) Time of Disposition: 21:41
== END 2019-08-08 21:57 | disposition home or self-care (01) ==
LOC: ED 16:26
DX: J45.909 Unspecified asthma, uncomplicated (principal); R05 Cough; R52 Pain, unspecified; F32.9 Major depressive disorder, single episode, unspecified; F17.200 Nicotine dependence, unspecified, uncomplicated; Z88.0 Allergy status to penicillin; Z88.2 Allergy status to sulfonamides; Z90.49 Acquired absence of other specified parts of digestive tract; Z79.899 Other long term (current) drug therapy
CPT/HCPCS: 36415; 70450; 80053; 82550; 83735; 85027; 85610; 93005; 93010

== ENCOUNTER 2020-06-16 14:18 | Emergency (ER) | payer SELFPAY ==
[2020-06-16 16:33] LABS: Basophils # (Auto) 0.1 K/mm3 (0.0-0.1); Basophils % (Auto) 0.9 % (0.0-1.8); Eosinophils % (Auto) 0.4 % (0.0-4.3); Hematocrit 46.2 % (35.5-45.6); Hemoglobin 15.7 gm/dl (11.8-15.2); Lymphocytes # (Auto) 1.9 K/mm3 (1.2-5.4); Lymphocytes % (Auto) 19.5 % (13.4-35.0); Mean Corpuscular HGB Conc 34 % (32-34); Mean Corpuscular Volume 90 fl (84-94); Monocytes # (Auto) 0.5 K/mm3 (0.0-0.8); Monocytes % (Auto) 4.9 % (0.0-7.3); Platelet Count 286 K/mm3 (140-440); Red Blood Count 5.12 M/mm3 (3.65-5.03); Red Cell Distribution Width 13.1 % (13.2-15.2)
[2020-06-16 16:51] LABS: Blood Urea Nitrogen 12 mg/dL (9-20); Calcium 9.4 mg/dL (8.4-10.2); Hemolysis Index 16
[2020-06-16 16:53] LABS: BUN/Creatinine Ratio 20
[2020-06-17] MEDS ORDERED: IBUPROFEN 800 MG TAB PO PRN (02:33)
[2020-06-17] MEDS ORDERED: traMADol 50 MG TAB PO PRN (02:33)
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
[2020-06-17 02:44] LABS: Bilirubin,Urine NEG (Negative); Blood,Urine NEG (Negative); Color,Urine Yellow (Yellow); Mucus,Urine 3+ /HPF; Protein,Urine <15 mg/dL mg/dL (Negative)
[2020-06-17 02:58] LABS: Amphetamine Screen,Urine PRESUMPTIVE NEGATIVE; Benzodiazepines Screen,Urine PRESUMPTIVE NEGATIVE; Cannabinoid Screen,Urine PRESUMPTIVE NEGATIVE; Cocaine Screen,Urine PRESUMPTIVE NEGATIVE; Methadone Screen,Urine PRESUMPTIVE NEGATIVE; Opiate Screen,Urine PRESUMPTIVE NEGATIVE
[2020-06-17 08:03] VITALS: BP 125/87
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
== END 2020-06-17 11:55 ==
LOC: ED 14:18
DX: R45.851 Suicidal ideations (principal); F32.9 Major depressive disorder, single episode, unspecified; J45.909 Unspecified asthma, uncomplicated; F17.200 Nicotine dependence, unspecified, uncomplicated; Z79.899 Other long term (current) drug therapy; Z88.0 Allergy status to penicillin; Z90.49 Acquired absence of other specified parts of digestive tract; Z88.2 Allergy status to sulfonamides
CPT/HCPCS: 36415; 80048; 80307; 80320; 81001; 85025; G0480

== ENCOUNTER 2021-04-19 12:12 | Emergency (ER) | payer SELFPAY ==
[2021-04-19] MEDS ORDERED: NEOMY 3.5 MG/BACIT 400 UNITS/POLY B 5000 UNITS/GM OINT PACKET TP ONE (13:09)
--- NOTE | 2021-04-19 13:47 | XRay Report ---
LEFT KNEE 4 VIEWS INDICATION / CLINICAL INFORMATION: playing basketball, fall directly on knee COMPARISON: None available. FINDINGS: BONES / JOINT(S): No acute fracture or subluxation. No significant arthritis. SOFT TISSUES: No significant abnormality. ADDITIONAL FINDINGS: None. Signer Name: Edmond Handley MD Signed: 04/19/2021 1:42 PM Workstation Name: [id number]
--- NOTE | 2021-04-19 14:03 | Emergency Department Report ---
ED Lower Extremity HPI - General Stated Complaint: LEFT KNEE PAIN Time Seen by Provider: 04/19/21 13:09 Source: patient Mode of arrival: Wheelchair Limitations: Physical Limitation - History of Present Illness Initial Comments: Patient is a 30-year-old male presents emergency room with complaints of a left knee injury that occurred yesterday. Patient states that he was playing basketball and the ball got tripped up in his legs and he fell and landed directly on his left knee against the concrete. States since then he has had left knee pain and swelling. He has an abrasion to his knee. He states he gets a tingling sensation in his leg but denies any complete numbness. He denies any weakness. He states that he has been ambulatory with a limp and is not able to ambulate with his foot completely flat. Allergy to penicillin and sulfa. - Related Data Previous Rx's Medication Instructions Recorded Last Taken Type Promethazine [Phenergan] 25 mg PO Q6H PRN #8 tablet 10/20/13 Unknown Rx Acetaminophen/Codeine [Tylenol 1 tab PO Q6H #12 tab 10/10/16 Unknown Rx /Codeine # 3 tab] Cyclobenzaprine [Flexeril 10 MG 10 mg PO QHS #20 tablet 10/10/16 Unknown Rx TAB] HYDROcodone/APAP 5-325 [[place] 1 each PO Q6HR PRN #10 tablet 11/28/16 Unknown Rx 5-325 mg TAB] Ondansetron [Zofran Odt] 4 mg PO Q8H PRN #10 tab.rapdis 11/28/16 Unknown Rx Naproxen [Naprosyn] 500 mg PO BID #14 tablet 03/16/17 Unknown Rx Ciprofloxacin 0.3% (Nf) 2.5 ml OP BID 7 Days #1 bottle 06/20/17 Unknown Rx [Ciprofloxacin OPTH] Prednisone [predniSONE 5 mg (6-Day 5 mg PO .TAPER #1 tab.ds.pk 06/20/17 Unknown Rx Pack, 21 Tabs)] levoFLOXacin [Levaquin TAB] 500 mg PO QDAY 7 Days #7 tablet 06/20/17 Unknown Rx Aspirin [Aspirin BABY CHEW TAB] 81 mg PO QDAY #30 tab.chew 10/03/17 Unknown Rx Clindamycin [Clindamycin CAP] 300 mg PO Q8H 10 Days #30 cap 01/29/18 Unknown Rx Ibuprofen [Motrin 800 MG tab] 800 mg PO Q8HR PRN #20 tablet 01/29/18 Unknown Rx traMADoL [Ultram 50 MG tab] 50 mg PO Q6HR PRN #20 tablet 01/29/18 Unknown Rx Acetaminophen/Codeine [Tylenol 1 tab PO Q6H PRN #12 tab 06/18/18 Unknown Rx /Codeine # 3 tab] Clindamycin [Clindamycin CAP] 300 mg PO Q6H #21 capsule 06/18/18 Unknown Rx Albuterol Mdi (or & Nicu Only) 2 puff IH QID PRN #8.5 gram 08/08/19 Unknown Rx [ProAir HFA Inhaler] ARIPiprazole [Abilify TAB] 5 mg PO DAILY #30 tab 06/17/20 Unknown Rx Trazodone HCl 50 mg PO DAILY #30 tablet 06/17/20 Unknown Rx Naproxen 375 mg PO BID PRN #20 tablet 04/19/21 Unknown Rx Neomycin/Bacitracin/Polymyxinb 1 applicatio TP BID #14 oint...g. 04/19/21 Unknown Rx [Triple Antibiotic Ointment] Allergies Allergy/AdvReac Type Severity Reaction Status Date / Time Penicillins Allergy Rash Verified 07/19/14 01:37 Sulfa (Sulfonamide Allergy Rash Verified 07/19/14 01:37 Antibiotics) ED Review of Systems ROS: Stated complaint: LEFT KNEE PAIN Other details as noted in HPI Comment: All other systems reviewed and negative ED Past Medical Hx - Past Medical History Hx Psychiatric Treatment: Yes (depression) Hx Asthma: Yes Additional medical history: hypoglycemia, insomnia - Surgical History Hx Appendectomy: Yes - Social History Smoking Status: Current Some Day Smoker Substance Use Type: None (Denies illicit drug use) - Medications Home Medications: Home Medications Medication Instructions Recorded Confirmed Last Taken Type Promethazine [Phenergan] 25 mg PO Q6H PRN #8 tablet 10/20/13 Unknown Rx Acetaminophen/Codeine [Tylenol 1 tab PO Q6H #12 tab 10/10/16 Unknown Rx /Codeine # 3 tab] Cyclobenzaprine [Flexeril 10 MG 10 mg PO QHS #20 tablet 10/10/16 Unknown Rx TAB] HYDROcodone/APAP 5-325 [[place] 1 each PO Q6HR PRN #10 tablet 11/28/16 Unknown Rx 5-325 mg TAB] Ondansetron [Zofran Odt] 4 mg PO Q8H PRN #10 tab.rapdis 11/28/16 Unknown Rx Naproxen [Naprosyn] 500 mg PO BID #14 tablet 03/16/17 Unknown Rx Ciprofloxacin 0.3% (Nf) 2.5 ml OP BID 7 Days #1 bottle 06/20/17 Unknown Rx [Ciprofloxacin OPTH] Prednisone [predniSONE 5 mg (6-Day 5 mg PO .TAPER #1 tab.ds.pk 06/20/17 Unknown Rx Pack, 21 Tabs)] levoFLOXacin [Levaquin TAB] 500 mg PO QDAY 7 Days #7 tablet 06/20/17 Unknown Rx Aspirin [Aspirin BABY CHEW TAB] 81 mg PO QDAY #30 tab.chew 10/03/17 Unknown Rx Clindamycin [Clindamycin CAP] 300 mg PO Q8H 10 Days #30 cap 01/29/18 Unknown Rx Ibuprofen [Motrin 800 MG tab] 800 mg PO Q8HR PRN #20 tablet 01/29/18 Unknown Rx traMADoL [Ultram 50 MG tab] 50 mg PO Q6HR PRN #20 tablet 01/29/18 Unknown Rx Acetaminophen/Codeine [Tylenol 1 tab PO Q6H PRN #12 tab 06/18/18 Unknown Rx /Codeine # 3 tab] Clindamycin [Clindamycin CAP] 300 mg PO Q6H #21 capsule 06/18/18 Unknown Rx Albuterol Mdi (or & Nicu Only) 2 puff IH QID PRN #8.5 gram 08/08/19 Unknown Rx [ProAir HFA Inhaler] ARIPiprazole [Abilify TAB] 5 mg PO DAILY #30 tab 06/17/20 Unknown Rx Trazodone HCl 50 mg PO DAILY #30 tablet 06/17/20 Unknown Rx Naproxen 375 mg PO BID PRN #20 tablet 04/19/21 Unknown Rx Neomycin/Bacitracin/Polymyxinb 1 applicatio TP BID #14 oint...g. 04/19/21 Unknown Rx [Triple Antibiotic Ointment] ED Physical Exam - General Limitations: Physical Limitation General appearance: alert, in no apparent distress - Head Head exam: Present: atraumatic, normocephalic - Eye Eye exam: Present: normal appearance - ENT ENT exam: Present: mucous membranes moist - Extremities Exam Extremities exam: Present: other (abrasion present left anterior knee, superficial, no active bleeding, ttp to the left anterior knee, mild edema, slightly decreased ROM of the left knee, pain with flexion, neurovascularly intact) - Neurological Exam Neurological exam: Present: alert, oriented X3 - Psychiatric Psychiatric exam: Present: normal affect, normal mood - Skin Skin exam: Present: warm, dry ED Course Vital Signs 04/19/21 14:42 Temperature 98.7 F Pulse Rate 79 Respiratory 16 Rate Blood Pressure 144/100 [Left] O2 Sat by Pulse 98 Oximetry ED Lower Extremity MDM - Radiology Data Radiology results: report reviewed Ordering Physician: JACOB JONES Date of Service: 04/19/21 Procedure(s): XR knee 4+V LT Accession Number(s): [id number] cc: JACOB JONES Fluoro Time In Minutes: LEFT KNEE 4 VIEWS INDICATION / CLINICAL INFORMATION: playing basketball, fall directly on knee COMPARISON: None available. FINDINGS: BONES / JOINT(S): No acute fracture or subluxation. No significant arthritis. SOFT TISSUES: No significant abnormality. ADDITIONAL FINDINGS: None. Signer Name: Edmond Handley MD Signed: 04/19/2021 1:42 PM Workstation Name: [id number] Transcribed By: ES Dictated By: Edmond Handley MD Electronically Authenticated By: Edmond Handley MD Signed Date/Time: 04/19/21 134 DD/ 40 TD/TT: - Medical Decision Making Patient is a 30-year-old male presents emergency room with complaints of a left knee injury that occurred yesterday. Patient states that he was playing basketball and the ball got tripped up in his legs and he fell and landed directly on his left knee against the concrete. States since then he has had left knee pain and swelling. He has an abrasion to his knee. He states he gets a tingling sensation in his leg but denies any complete numbness. He denies any weakness. He states that he has been ambulatory with a limp and is not able to ambulate with his foot completely flat. Allergy to penicillin and sulfa. Vitals are stable. On exam:abrasion present left anterior knee, superficial, no active bleeding, ttp to the left anterior knee, mild edema, slightly decreased ROM of the left knee, pain with flexion, neurovascularly intact. XR left knee: BONES / JOINT(S): No acute fracture or subluxation. No significant arthritis. SOFT TISSUES: No significant abnormality. ADDITIONAL FINDINGS: None. Wound care performed by EMT. Patient placed in knee immobilizer and given crutches and remain neurovascularly intact. Discussed the importance of outpatient orthopedic follow-up. Advised patient Please take medication as prescribed. May elevate the leg. Follow-up with orthopedic doctor. Return to emergency room for any new or worsening symptoms. Critical care attestation.: If time is entered above; I have spent that time in minutes in the direct care of this critically ill patient, excluding procedure time. ED Disposition Clinical Impression: Abrasion, left knee, initial encounter Left knee sprain Qualifiers: Encounter type: initial encounter Involved ligament of knee: unspecified ligament Qualified Code(s): S83.92XA - Sprain of unspecified site of left knee, initial encounter Disposition: 01 HOME / SELF CARE / HOMELESS Is pt being admited?: No Does the pt Need Aspirin: No Condition: Stable Instructions: Abrasion, Knee Sprain, Adult, Ictc-[id number] Additional Instructions: Please take medication as prescribed. May elevate the leg. Follow-up with orthopedic doctor. Return to emergency room for any new or worsening symptoms. Prescriptions: Naproxen 375 mg PO BID PRN #20 tablet PRN Reason: pain Neomycin/Bacitracin/Polymyxinb [Triple Antibiotic Ointment] 1 applicatio TP BID #14 oint...g. Referrals: FELICITY HARRIS MD [Staff Physician] - 3-5 Days [facility] [Provider Group] - 3-5 Days Forms: Work/School Release Form(ED), Work/School Excuse Out Patient Time of Disposition: 14:01 Print Language: HUNGARIAN
[2021-04-19 14:43] VITALS: BP 144/100
== END 2021-04-19 15:08 | disposition home or self-care (01) ==
LOC: ED 12:12
DX: S83.92XA Sprain of unspecified site of left knee, initial encounter (principal); J45.909 Unspecified asthma, uncomplicated; F17.200 Nicotine dependence, unspecified, uncomplicated; Z90.49 Acquired absence of other specified parts of digestive tract; Z72.89 Other problems related to lifestyle; Z88.0 Allergy status to penicillin; Z88.2 Allergy status to sulfonamides; Z79.899 Other long term (current) drug therapy; W01.0XXA Fall on same level from slipping, tripping and stumbling without subsequent striking against object, initial encounter; Z91.81 History of falling; Y93.67 Activity, basketball; Y92.89 Other specified places as the place of occurrence of the external cause; Y99.8 Other external cause status
CPT/HCPCS: 73564; 99283; A6250

== ENCOUNTER 2021-11-17 10:08 | Emergency (ER) | payer SELFPAY ==
--- NOTE | 2021-11-17 11:49 | Emergency Department Report ---
ED Upper Extremity Inj HPI - General Chief Complaint: Nausea/Vomiting/Diarrhea Stated Complaint: NAUSEA/VOMITING (2DAYS) Time Seen by Provider: 11/17/21 11:14 Source: patient, EMS Mode of arrival: Stretcher Limitations: No Limitations - History of Present Illness Initial Comments: 31-year-old male was playing basketball this past Monday and lost his balance and fell down on the right side landing on the lateral aspect of the elbow resulting in pain and swelling. Presents emergency department seeking further evaluation of the injury as he feels that it may have been broken. No numbness or tingling. Complaint: Injury to:: right, elbow Other Extremity Injury: Elbow: Right Handedness: right Place: outdoors - Related Data Previous Rx's Medication Instructions Recorded Last Taken Type Promethazine [Phenergan] 25 mg PO Q6H PRN #8 tablet 10/20/13 Unknown Rx Acetaminophen/Codeine [Tylenol 1 tab PO Q6H #12 tab 10/10/16 Unknown Rx /Codeine # 3 tab] Cyclobenzaprine [Flexeril 10 MG 10 mg PO QHS #20 tablet 10/10/16 Unknown Rx TAB] HYDROcodone/APAP 5-325 [[place] 1 each PO Q6HR PRN #10 tablet 11/28/16 Unknown Rx 5-325 mg TAB] Ondansetron [Zofran Odt] 4 mg PO Q8H PRN #10 tab.rapdis 11/28/16 Unknown Rx Naproxen [Naprosyn] 500 mg PO BID #14 tablet 03/16/17 Unknown Rx Ciprofloxacin 0.3% (Nf) 2.5 ml OP BID 7 Days #1 bottle 06/20/17 Unknown Rx [Ciprofloxacin OPTH] Prednisone [predniSONE 5 mg (6-Day 5 mg PO .TAPER #1 tab.ds.pk 06/20/17 Unknown Rx Pack, 21 Tabs)] levoFLOXacin [Levaquin TAB] 500 mg PO QDAY 7 Days #7 tablet 06/20/17 Unknown Rx Aspirin [Aspirin BABY CHEW TAB] 81 mg PO QDAY #30 tab.chew 10/03/17 Unknown Rx Clindamycin [Clindamycin CAP] 300 mg PO Q8H 10 Days #30 cap 01/29/18 Unknown Rx Ibuprofen [Motrin 800 MG tab] 800 mg PO Q8HR PRN #20 tablet 01/29/18 Unknown Rx traMADoL [Ultram 50 MG tab] 50 mg PO Q6HR PRN #20 tablet 01/29/18 Unknown Rx Acetaminophen/Codeine [Tylenol 1 tab PO Q6H PRN #12 tab 06/18/18 Unknown Rx /Codeine # 3 tab] Clindamycin [Clindamycin CAP] 300 mg PO Q6H #21 capsule 06/18/18 Unknown Rx Albuterol Mdi (or & Nicu Only) 2 puff IH QID PRN #8.5 gram 08/08/19 Unknown Rx [ProAir HFA Inhaler] ARIPiprazole [Abilify TAB] 5 mg PO DAILY #30 tab 06/17/20 Unknown Rx Trazodone HCl 50 mg PO DAILY #30 tablet 06/17/20 Unknown Rx Naproxen 375 mg PO BID PRN #20 tablet 04/19/21 Unknown Rx Neomycin/Bacitracin/Polymyxinb 1 applicatio TP BID #14 oint...g. 04/19/21 Unknown Rx [Triple Antibiotic Ointment] Ketorolac [Toradol] 10 mg PO Q6H PRN #14 11/17/21 Unknown Rx Allergies Allergy/AdvReac Type Severity Reaction Status Date / Time Penicillins Allergy Rash Verified 11/17/21 10:21 Sulfa (Sulfonamide Allergy Rash Verified 11/17/21 10:21 Antibiotics) ED Review of Systems ROS: Stated complaint: NAUSEA/VOMITING (2DAYS) Other details as noted in HPI Comment: All other systems reviewed and negative Gastrointestinal: other (Increased belching and had occasional diarrhea a couple weeks ago) ED Past Medical Hx - Past Medical History Hx Psychiatric Treatment: Yes (depression) Hx Asthma: Yes Additional medical history: hypoglycemia, insomnia - Surgical History Hx Appendectomy: Yes - Social History Smoking Status: Current Some Day Smoker Substance Use Type: None (Denies illicit drug use) - Medications Home Medications: Home Medications Medication Instructions Recorded Confirmed Last Taken Type Promethazine [Phenergan] 25 mg PO Q6H PRN #8 tablet 10/20/13 Unknown Rx Acetaminophen/Codeine [Tylenol 1 tab PO Q6H #12 tab 10/10/16 Unknown Rx /Codeine # 3 tab] Cyclobenzaprine [Flexeril 10 MG 10 mg PO QHS #20 tablet 10/10/16 Unknown Rx TAB] HYDROcodone/APAP 5-325 [[place] 1 each PO Q6HR PRN #10 tablet 11/28/16 Unknown Rx 5-325 mg TAB] Ondansetron [Zofran Odt] 4 mg PO Q8H PRN #10 tab.rapdis 11/28/16 Unknown Rx Naproxen [Naprosyn] 500 mg PO BID #14 tablet 03/16/17 Unknown Rx Ciprofloxacin 0.3% (Nf) 2.5 ml OP BID 7 Days #1 bottle 06/20/17 Unknown Rx [Ciprofloxacin OPTH] Prednisone [predniSONE 5 mg (6-Day 5 mg PO .TAPER #1 tab.ds.pk 06/20/17 Unknown Rx Pack, 21 Tabs)] levoFLOXacin [Levaquin TAB] 500 mg PO QDAY 7 Days #7 tablet 06/20/17 Unknown Rx Aspirin [Aspirin BABY CHEW TAB] 81 mg PO QDAY #30 tab.chew 10/03/17 Unknown Rx Clindamycin [Clindamycin CAP] 300 mg PO Q8H 10 Days #30 cap 01/29/18 Unknown Rx Ibuprofen [Motrin 800 MG tab] 800 mg PO Q8HR PRN #20 tablet 01/29/18 Unknown Rx traMADoL [Ultram 50 MG tab] 50 mg PO Q6HR PRN #20 tablet 01/29/18 Unknown Rx Acetaminophen/Codeine [Tylenol 1 tab PO Q6H PRN #12 tab 06/18/18 Unknown Rx /Codeine # 3 tab] Clindamycin [Clindamycin CAP] 300 mg PO Q6H #21 capsule 06/18/18 Unknown Rx Albuterol Mdi (or & Nicu Only) 2 puff IH QID PRN #8.5 gram 08/08/19 Unknown Rx [ProAir HFA Inhaler] ARIPiprazole [Abilify TAB] 5 mg PO DAILY #30 tab 06/17/20 Unknown Rx Trazodone HCl 50 mg PO DAILY #30 tablet 06/17/20 Unknown Rx Naproxen 375 mg PO BID PRN #20 tablet 04/19/21 Unknown Rx Neomycin/Bacitracin/Polymyxinb 1 applicatio TP BID #14 oint...g. 04/19/21 Unknown Rx [Triple Antibiotic Ointment] Ketorolac [Toradol] 10 mg PO Q6H PRN #14 11/17/21 Unknown Rx ED Physical Exam - General Limitations: No Limitations General appearance: alert, in no apparent distress - Head Head exam: Present: atraumatic, normocephalic - Eye Eye exam: Present: normal appearance, PERRL, EOMI Pupils: Present: normal accommodation - ENT ENT exam: Present: normal exam, mucous membranes moist - Neck Neck exam: Present: normal inspection, full ROM - Respiratory Respiratory exam: Present: normal lung sounds bilaterally. Absent: respiratory distress - Cardiovascular Cardiovascular Exam: Present: regular rate, normal rhythm. Absent: systolic murmur, diastolic murmur, rubs, gallop - GI/Abdominal GI/Abdominal exam: Present: soft, normal bowel sounds - Rectal Rectal exam: Present: deferred - Extremities Exam Extremities exam: Present: normal inspection, tenderness, normal capillary refill, joint swelling (To the lateral aspect of the right elbow. Full range of motion is noted) - Back Exam Back exam: Present: normal inspection - Neurological Exam Neurological exam: Present: alert, oriented X3, CN II-XII intact - Psychiatric Psychiatric exam: Present: normal affect, normal mood - Skin Skin exam: Present: warm, dry, intact, normal color. Absent: rash ED Course Vital Signs 11/17/21 11/17/21 10:19 12:06 Temperature 98.9 F Pulse Rate 80 77 Respiratory 18 Rate Blood Pressure 138/72 128/75 [Left] O2 Sat by Pulse 99 99 Oximetry ED Medical Decision Making - Radiology Data Radiology results: report reviewed [facility] [address] [place] [address] XRay Report Signed Patient: LITO BULLARD MR#: [id number] : 1990 Acct:[id number] Age/Sex: 31 / M ADM Date: 11/17/21 Loc: ED Attending Dr: Ordering Physician: JACOB LANDON Date of Service: 11/17/21 Procedure(s): XR elbow 3+V RT Accession Number(s): [id number] cc: JACOB LANDON Fluoro Time In Minutes: RIGHT ELBOW 3 VIEW(S) INDICATION / CLINICAL INFORMATION: fall pain COMPARISON: None available. FINDINGS: BONES / JOINT(S): No acute fracture or subluxation. No significant arthritis. SOFT TISSUES: No significant abnormality. ADDITIONAL FINDINGS: None. IMPRESSION: 1. No acute findings. Signer Name: Juan R Peralta MD Signed: 11/17/2021 12:05 PM Workstation Name: [id number] Transcribed By: TL Dictated By: Juan R Peralta MD Electronically Authenticated By: Juan R Peralta MD Signed Date/Time: 11/17/211204 DD/ 04 TD/TT: Critical care attestation.: If time is entered above; I have spent that time in minutes in the direct care of this critically ill patient, excluding procedure time. ED Disposition Clinical Impression: Contusion of elbow, right Disposition: 01 HOME / SELF CARE / HOMELESS Is pt being admited?: No Does the pt Need Aspirin: No Condition: Stable Instructions: Elbow Contusion, How to Use Cold Therapy Prescriptions: Ketorolac [Toradol] 10 mg PO Q6H PRN #14 PRN Reason: Pain Referrals: [facility] [Provider Group] - 3-5 Days
--- NOTE | 2021-11-17 12:09 | XRay Report ---
RIGHT ELBOW 3 VIEW(S) INDICATION / CLINICAL INFORMATION: fall pain COMPARISON: None available. FINDINGS: BONES / JOINT(S): No acute fracture or subluxation. No significant arthritis. SOFT TISSUES: No significant abnormality. ADDITIONAL FINDINGS: None. IMPRESSION: 1. No acute findings. Signer Name: Juan R Peralta MD Signed: 11/17/2021 12:05 PM Workstation Name: [id number]
[2021-11-17 14:59] VITALS: BP 151/68
== END 2021-11-17 18:07 | disposition home or self-care (01) ==
LOC: ED 10:08
DX: S50.01XA Contusion of right elbow, initial encounter (principal); F32.9 Major depressive disorder, single episode, unspecified; J45.909 Unspecified asthma, uncomplicated; F17.200 Nicotine dependence, unspecified, uncomplicated; Z79.899 Other long term (current) drug therapy; Z88.0 Allergy status to penicillin; Z88.2 Allergy status to sulfonamides; Z79.82 Long term (current) use of aspirin; W18.39XA Other fall on same level, initial encounter; Y93.89 Activity, other specified; Y92.89 Other specified places as the place of occurrence of the external cause; Y99.8 Other external cause status
CPT/HCPCS: 99284